=== PATIENT | male | born 1995 | race Caucasian/White ===

== ENCOUNTER 2019-08-25 14:44 | Emergency (ER) | payer SELFPAY ==
[~2019-08-25] VITALS: Ht 157.5 cm; Wt 52.2 kg
[2019-08-25 15:40] VITALS: BP 126/90
--- NOTE | 2019-08-25 15:52 | NUR ---
PT TRIAGED, SENT BACK TO LOBBY AWAITING FOR BED
[2019-08-25 18:12] LABS: BASOPHILS % (AUTO) 0.2 % (0.0-2.0); EOSINOPHILS % (AUTO) 0.4 % (0.0-4.0); HEMOGLOBIN 16.9 g/dL (12.0-18.0); LYMPHOCYTES # (AUTO) 1.4 K/uL (2.0-11.5); LYMPHOCYTES % (AUTO) 14.1 % (20.5-51.1); MEAN CORPUSCULAR HEMOGLOBIN 30 pg (27-31); MEAN CORPUSCULAR HGB CONC 34 g/dL (33-37); MEAN CORPUSCULAR VOLUME 89.8 fL (80-94); MONOCYTES # (AUTO) 0.3 K/uL (0.8-1.0); MONOCYTES % (AUTO) 3.5 % (1.7-9.3); NEUTROPHILS % (AUTO) 81.8 % (42.2-75.2); PLATELET COUNT (AUTO) 170 K/uL (140-450); RED BLOOD CELL COUNT(AUTO) 5.57 MIL/uL (4.20-6.10); RED CELL DISTRIBUTION WIDTH 13.5 % (11.6-13.7); WHITE BLOOD COUNT (AUTO) 9.8 K/uL (4.8-10.8)
[2019-08-25 18:40] LABS: ANION GAP 15.7 (8-16); CARBON DIOXIDE 27.9 mmol/L (21-32); CREATININE 0.9 mg/dL (0.7-1.3); POTASSIUM 3.6 mmol/L (3.5-5.1)
[2019-08-25 18:46] LABS: ALBUMIN 4.8 g/dL (3.4-5.0); TOTAL BILIRUBIN 0.6 mg/dL (0.0-1.0)
--- NOTE | 2019-08-25 19:06 | NUR ---
PT AMBULATED TO BED 9.
--- NOTE | 2019-08-25 19:23 | NUR ---
24 YO M BIB SELF PRESENTS TO ED C/O NON DESCRIPT LEFT SIDE CHEST PAIN OFF AND ON X 3 WEEKS. DENIES SOB, NVD. PT WAS ADMITTED LAST MONTH FOR SUBSTANCE ABUSE. DENIES RECENT ALCOHOL/SUBSTANCE ABUSE. SKIN NORMAL FOR ETHNICITY, WARM, DRY. BREATHING EVEN, UNLABORED. NO DIAPHORESIS, WEAKNESS AT THIS TIME. NO S/SX DISTRESS. HX HTN, GERD, METH AND ALCOHOL USE. RX OMEPRAZOLE
--- NOTE | 2019-08-25 19:30 | NUR ---
DR. LESLY YEH AT BEDSIDE.
[2019-08-25] MEDS ORDERED: DICYCLOMINE HCL LIQUID 20 MG, ALUMINUM HYD/MAG/SIMETHICONE 30 ML, LIDOCAINE VISCOUS 2% ... PO ONE ×3 (19:35)
[2019-08-25] MEDS ORDERED: LIDOCAINE VISCOUS 2% 20 ML UDC ONE (19:45)
[2019-08-25] MEDS ORDERED: DICYCLOMINE HCL LIQUID 10 MG/5 ML UDC ONE (19:45)
[2019-08-25] MEDS ORDERED: ALUMINUM HYD/MAG/SIMETHICONE 30 ML UDC ONE (19:45)
--- NOTE | 2019-08-25 19:58 | NUR ---
MEDICATED WITH GI COCKTAIL TO TREAT 8/10 CHEST PAIN. WILL REASSESS.
--- NOTE | 2019-08-25 20:31 | NUR ---
REPORTS NO RELIEF FROM GI COCKTAIL. PT LAYING IN BED CLUTCHING CHEST SAYING "MY HEART". LOWER EXTREMETIES TREMBLING. HR 120. DR. GRACE MADE AWARE. WILL MEDICATE WITH ATIVAN FOR ANXIETY, POSSIBLE METH USE.
[2019-08-25] MEDS ORDERED: LORazepam 1 MG TAB PO ONE (20:50)
--- NOTE | 2019-08-25 21:01 | NUR ---
MEDICATED WITH 1 MG PO ATIVAN FOR ANXIETY.
[2019-08-25 21:29] VITALS: BP 153/83
--- NOTE | 2019-08-25 21:29 | NUR ---
Patient discharged with v/s stable. Written and verbal after care instructions given and explained. Patient alert, oriented and verbalized understanding of instructions. Ambulatory with steady gait. All questions addressed prior to discharge. ID band removed. Patient advised to follow up with PMD. Rx of HYDROXYZINE given. Patient educated on indication of medication including possible reaction and side effects. Opportunity to ask questions provided and answered.
== END 2019-08-25 21:29 | disposition home or self-care (01) ==
LOC: MED 14:44
DX: F41.9 Anxiety disorder, unspecified (principal); R07.89 Other chest pain; R10.13 Epigastric pain; I10 Essential (primary) hypertension; K21.9 Gastro-esophageal reflux disease without esophagitis; F19.10 Other psychoactive substance abuse, uncomplicated; F15.10 Other stimulant abuse, uncomplicated
CPT/HCPCS: 36415; 71045; 80053; 83690; 84484; 85025; 93005; 99284

== ENCOUNTER 2021-01-24 02:45 | Emergency (ER) | payer SELFPAY ==
[~2021-01-24] VITALS: Ht 162.6 cm; Wt 77.1 kg
[2021-01-24 02:54] VITALS: BP 111/84
--- NOTE | 2021-01-24 02:54 | NUR ---
TO BED AMBULATORY
[2021-01-24] MEDS ORDERED: ACETAMINOPHEN 325 MG TAB PO ONE ×2 (03:00→05:35)
--- NOTE | 2021-01-24 03:00 | NUR ---
COVERING PRIMARY RN FOR LUNCH RELIEF. SEE COMPLETE ASSESSMENT
--- NOTE | 2021-01-24 03:11 | NUR ---
Patient being evaluated by physician at bedside.
[2021-01-24] MEDS ORDERED: IBUPROFEN 800 MG TAB PO ONE (03:20)
[2021-01-24] MEDS ORDERED: NACL 0.9% 1,000 ML IV ONE (03:20)
[2021-01-24] MEDS ORDERED: NACL 0.9% 2,000 ML IV ONE (03:20)
[2021-01-24 03:29] LABS: EOSINOPHILS % (AUTO) 0.1 % (0.0-4.0); HEMOGLOBIN 17.5 g/dL (12.0-18.0); LYMPHOCYTES # (AUTO) 0.5 K/uL (2.0-11.5); LYMPHOCYTES % (AUTO) 3.6 % (20.5-51.1); MEAN CORPUSCULAR HEMOGLOBIN 31 pg (27-31); MEAN CORPUSCULAR HGB CONC 35 g/dL (33-37); MEAN CORPUSCULAR VOLUME 88.2 fL (80-94); MONOCYTES # (AUTO) 0.5 K/uL (0.8-1.0); NEUTROPHILS # (AUTO) 11.5 K/uL (1.8-7.7); NEUTROPHILS % (AUTO) 92.3 % (42.2-75.2); PLATELET COUNT (AUTO) 118 K/uL (140-450); RED BLOOD CELL COUNT(AUTO) 5.67 MIL/uL (4.20-6.10); RED CELL DISTRIBUTION WIDTH 13.7 % (11.6-13.7); WHITE BLOOD COUNT (AUTO) 12.5 K/uL (4.8-10.8)
--- NOTE | 2021-01-24 03:30 | NUR ---
Nohemi and flu samples obtained and walked to lab.
--- NOTE | 2021-01-24 03:31 | NUR ---
Patient taken to radiology via wheel chair.
[2021-01-24] MEDS ORDERED: cefTRIAXone 1,000 MG VIAL ONE (03:44)
--- NOTE | 2021-01-24 03:45 | NUR ---
Patient AOx4, S1S2 present. Patient laying in bed respirations even and unlabored, chest expansion symmetrical, lung sounds clear throughout. Bowel sounds present throughout. Patient now C/O R testicular pain that comes and goes and a lump x 1 year, ERMD made aware. Patient denies problems w urination. Patient laying supine in bed, locked in lowest position, x1 side rail up. NAD noted at this time. Will continue to monitor.
[2021-01-24 04:02] LABS: ANION GAP 16.1 (8-16); CREATININE 1.1 mg/dL (0.6-1.3); POTASSIUM 3.1 mmol/L (3.5-5.1); TOTAL BILIRUBIN 1.4 mg/dL (0.0-1.0)
[2021-01-24 04:03] LABS: ALBUMIN 4.4 g/dL (3.4-5.0)
[2021-01-24] MEDS ORDERED: POTASSIUM CHLORIDE 10 MEQ TABER PO ONE (04:20)
--- NOTE | 2021-01-24 04:25 | NUR ---
Urine sample collected and taken to lab.
[2021-01-24 04:45] LABS: APPEARANCE,URINE CLEAR (CLEAR); BILIRUBIN,URINE NEGATIVE (NEGATIVE); BLOOD, URINE NEGATIVE (NEGATIVE); COLOR,URINE YELLOW (YELLOW); LEUKOCYTE ESTERASE ,URINE NEGATIVE (NEGATIVE); NITRITE, URINE NEGATIVE (NEGATIVE); PH,URINE 6.5 (5.0-9.0); UGLUCOSE NEGATIVE (NEGATIVE)
[2021-01-24] MEDS ORDERED: CEPH-588 PO (06:00)
[2021-01-24] MEDS ORDERED: MORPHINE SULFATE 2 MG/ML SYR IVP ONE (06:15)
[2021-01-24] MEDS ORDERED: PANTOPRAZOLE 40 MG INJ VIAL IVP ONE (06:15)
[2021-01-24] MEDS ORDERED: LOPERAMIDE 2 MG CAP PO ONE ×3 (06:20→06:21)
[2021-01-24] MEDS ORDERED: PANTOPRAZOLE 40 MG INJ VIAL ONE (06:25)
--- NOTE | 2021-01-24 06:38 | NUR ---
Patient presents w HR 108, ERMD made aware. Per ERMD patient can be discharged.
[2021-01-24 06:44] VITALS: BP 104/63
== END 2021-01-24 06:44 | disposition home or self-care (01) ==
LOC: MED 02:45
DX: R65.11 Systemic inflammatory response syndrome (SIRS) of non-infectious origin with acute organ dysfunction (principal); R11.2 Nausea with vomiting, unspecified; K21.9 Gastro-esophageal reflux disease without esophagitis; I10 Essential (primary) hypertension; Z20.822 Contact with and (suspected) exposure to COVID-19
CPT/HCPCS: 36415; 71045; 74176; 80053; 81003; 83605; 84484; 85025; 87040; 87426; 87804; 93005; 96361; 96365; 96375; 99291; C9113; J0696; J7030

== ENCOUNTER 2021-01-30 11:43 | Emergency (ER) | payer SELFPAY ==
[~2021-01-30] VITALS: Ht 162.6 cm; Wt 50.8 kg
[~2021-01-30 11:43] MED LIST: CEPH-588 PO
[2021-01-30 11:47] VITALS: BP 110/59
--- NOTE | 2021-01-30 11:52 | NUR ---
PT AMBULATORY TO BED #12
--- NOTE | 2021-01-30 11:52 | NUR ---
SEE COMPLETE ASSESSMENT FOR ADDITIONAL INFORMATION
--- NOTE | 2021-01-30 12:00 | NUR ---
DR. COLEMAN AT BEDSIDE FOR MSE
--- NOTE | 2021-01-30 12:27 | NUR ---
PCR COLLECTED AND HANDED TO [facility]Y [facility]EL TECH
--- NOTE | 2021-01-30 12:27 | NUR ---
PT AMBULATORY TO RESTROOM. UNABLE TO PROVIDE URINE SPECIMEN AT THIS TIME.
[2021-01-30 12:34] LABS: BASOPHILS % (AUTO) 0.4 % (0.0-2.0); EOSINOPHILS # (AUTO) 0.1 K/uL (0-0.4); EOSINOPHILS % (AUTO) 0.9 % (0.0-4.0); HEMATOCRIT 48.6 % (36-52); LYMPHOCYTES # (AUTO) 1.2 K/uL (2.0-11.5); LYMPHOCYTES % (AUTO) 10.9 % (20.5-51.1); MEAN CORPUSCULAR HEMOGLOBIN 31 pg (27-31); MEAN CORPUSCULAR HGB CONC 35 g/dL (33-37); MEAN CORPUSCULAR VOLUME 87.6 fL (80-94); MONOCYTES # (AUTO) 0.6 K/uL (0.8-1.0); MONOCYTES % (AUTO) 5.9 % (1.7-9.3); NEUTROPHILS # (AUTO) 8.8 K/uL (1.8-7.7); NEUTROPHILS % (AUTO) 81.9 % (42.2-75.2); PLATELET COUNT (AUTO) 175 K/uL (140-450); RED BLOOD CELL COUNT(AUTO) 5.55 MIL/uL (4.20-6.10); RED CELL DISTRIBUTION WIDTH 13.7 % (11.6-13.7); WHITE BLOOD COUNT (AUTO) 10.8 K/uL (4.8-10.8)
[2021-01-30 12:46] LABS: ANION GAP 13.7 (8-16); CARBON DIOXIDE 28.9 mmol/L (21-32); CREATININE 1.1 mg/dL (0.6-1.3); POTASSIUM 3.6 mmol/L (3.5-5.1)
[2021-01-30 12:53] LABS: PROTHROMBIN TIME 10.2 secs (10.8-13.4)
[2021-01-30 12:58] LABS: ALBUMIN 3.9 g/dL (3.4-5.0)
--- NOTE | 2021-01-30 13:02 | NUR ---
URINE SAMPLE OBTAINED AND WALKED TO LAB.
[2021-01-30 13:18] LABS: APPEARANCE,URINE CLEAR (CLEAR); BILIRUBIN,URINE 1+ (NEGATIVE); BLOOD, URINE NEGATIVE (NEGATIVE); COLOR,URINE YELLOW (YELLOW); LEUKOCYTE ESTERASE ,URINE NEGATIVE (NEGATIVE); NITRITE, URINE NEGATIVE (NEGATIVE); UGLUCOSE NEGATIVE (NEGATIVE)
--- NOTE | 2021-01-30 13:21 | NUR ---
STOOL SAMPLE OBTAINED AND WALKED TO LAB
--- NOTE | 2021-01-30 13:30 | NUR ---
PT SEATED UPRIGHT IN BED. VSS. NO IMMEDIATE NEEDS AT THIS TIME. WILL CONTINUE TO MONITOR.
[2021-01-30 13:38] VITALS: BP 132/73
--- NOTE | 2021-01-30 14:13 | NUR ---
PER [facility] HEL[facility], ORDERS FOR C. DIFF, STOOL OCCULT, AND ETC ARE ALL SEND OUT. DR. COLEMAN MADE AWARE.
[2021-01-30] MEDS ORDERED: ATRO1TAB PO (14:18)
--- NOTE | 2021-01-30 14:35 | NUR ---
Patient discharged with v/s stable. Written and verbal after care instructions given and explained. Patient alert, oriented and verbalized understanding of instructions. Ambulatory with steady gait. All questions addressed prior to discharge. ID band removed. Patient advised to follow up with PMD. Rx of LOMITIL given. Patient educated on indication of medication including possible reaction and side effects. Opportunity to ask questions provided and answered.
== END 2021-01-30 14:35 | disposition home or self-care (01) ==
LOC: MED 11:43
DX: R19.7 Diarrhea, unspecified (principal); Z20.822 Contact with and (suspected) exposure to COVID-19; K21.9 Gastro-esophageal reflux disease without esophagitis; I10 Essential (primary) hypertension; Z79.899 Other long term (current) drug therapy
CPT/HCPCS: 80053; 81003; 82272; 83605; 85025; 85610; 85730; 86703; 87070; 87086; 89055; 99283; U0003

== ENCOUNTER 2021-09-16 16:57 | Emergency (ER) | payer MEDICAID, OTHER ==
[~2021-09-16] VITALS: Ht 165.1 cm; Wt 7.4 kg
[~2021-09-16 16:57] MED LIST changes: +ATRO1TAB PO
[2021-09-16 17:02] VITALS: BP 155/84
--- NOTE | 2021-09-16 17:25 | NUR ---
BIB SELF C/O ANXIETY, HEART PALPITATION X TODAY. P 131 AT THIS TIME.PMH: ANXIETY
--- NOTE | 2021-09-16 17:29 | NUR ---
Dr Mix at bedside to assess pt.
[2021-09-16] MEDS ORDERED: NACL 0.9% 1,000 ML IV ONE (17:30)
[2021-09-16] MEDS ORDERED: ATA25 PO (17:34)
[2021-09-16] MEDS ORDERED: IBUP-2213 PO (17:34)
[2021-09-16 18:24] VITALS: BP 155/84
--- NOTE | 2021-09-16 18:25 | NUR ---
Patient discharged with v/s stable. Written and verbal after care instructions given and explained. Patient alert, oriented and verbalized understanding of instructions. Ambulatory with steady gait. All questions addressed prior to discharge. ID band removed. Patient advised to follow up with PMD. Rx of IBUPROFEN AND ATIRAX given. Patient educated on indication of medication including possible reaction and side effects. Opportunity to ask questions provided and answered.
== END 2021-09-16 18:24 | disposition home or self-care (01) ==
LOC: MED 16:57
DX: F41.9 Anxiety disorder, unspecified (principal); K21.9 Gastro-esophageal reflux disease without esophagitis
CPT/HCPCS: 93005; 99283; J7030

== ENCOUNTER 2022-03-30 09:53 | Emergency (ER) | payer SELFPAY ==
[~2022-03-30] VITALS: Ht 157.5 cm; Wt 53.1 kg
[~2022-03-30 09:53] MED LIST changes: +ATA25 PO; +IBUP-2213 PO
[2022-03-30 10:00] VITALS: BP 132/85
--- NOTE | 2022-03-30 10:06 | NUR ---
PT AMBULATED TO [facility] STEADY GAIT
--- NOTE | 2022-03-30 10:28 | NUR ---
DR SHANKS SPEAKING TO PT IN TRIAGE
--- NOTE | 2022-03-30 10:32 | NUR ---
27 Y/O MALE BIB SELF C/O OF N/ABD PAIN, RODRIGUEZ XTODAY. DENIES ANY DIARRHEA OR VOMITING. BS 107 NKA PMH: DENIES
[2022-03-30] MEDS ORDERED: KETOROLAC 30 MG/ML VIAL IM ONE (10:35)
[2022-03-30] MEDS ORDERED: ONDANSETRON 4 MG ODT PO ONE (10:35)
[2022-03-30] MEDS ORDERED: IBUP-2213 PO (10:57)
[2022-03-30] MEDS ORDERED: ONDA-188 SL (10:57)
[2022-03-30 11:14] VITALS: BP 132/85
--- NOTE | 2022-03-30 11:15 | NUR ---
Patient discharged with v/s stable. Written and verbal after care instructions given and explained. Patient alert, oriented and verbalized understanding of instructions. Ambulatory with steady gait. All questions addressed prior to discharge. ID band removed. Patient advised to follow up with PMD. Rx of ZOFRAN, IBUPROFEN given. Patient educated on indication of medication including possible reaction and side effects. Opportunity to ask questions provided and answered.
== END 2022-03-30 11:15 | disposition home or self-care (01) ==
LOC: MED 09:53
DX: R11.0 Nausea (principal); R51.9 Headache, unspecified; K21.9 Gastro-esophageal reflux disease without esophagitis; I10 Essential (primary) hypertension; Z79.899 Other long term (current) drug therapy
CPT/HCPCS: 96372; 99283; J1885; Q0162